=== PATIENT | male | born 1980 | race Caucasian/White ===

== ENCOUNTER 2019-10-19 12:47 | Outpatient (CLI) | payer OTHER ==
--- NOTE | 2019-10-19 14:28 | MRI ---
MRI lumbar spine noncontrast: HISTORY: Lumbago with sciatica. Symptoms are on the right side. Numbness x3 months. COMPARISON: None FINDINGS: Appropriate T1 marrow signal intensity of the lumbar vertebra. Lumbar spine vertebral body height is maintained. No fracture. No significant STIR hyperintensity to suggest ligamentous injury or vertebral body edema. Sagittal images of the visualized sacrum and upper coccyx do not demonstrate any abnormality. Presacr al fat is preserved. Appropriate signal intensity visualized paraspinal muscles and solid organs. Left renal parapelvic cy sts are noted. Conus medullaris terminates at the superior endplate of L1 T12-L1:Minimal disc desiccation without significant loss of disc space height. Small left and right p aracentral disc bulges. No significant central canal stenosis or significant neural foraminal narrowing. L1-L2:Adequate disc hydration. No loss of disc space height. No posterior disc abnormality. No signif icant central canal stenosis or significant neural foraminal narrowing. L2-L3:Adequate disc hydration. Broad-based disc bulge minimally flattens the ventral thecal sac. Mode rate bilateral facet hypertrophy. No significant ductal canal stenosis. Mild bilateral neural foraminal narrowing. L3-L4:Adequate disc hydration. Broad-based disc bulge minimally flattens the ventral thecal sac. Mode rate bilateral facet hypertrophy. No significant central canal stenosis. Right neural foramen is patent. Moderate left foraminal narrowing due to disc material and to lesser extent facet hypertrophy . L4-L5:Disc desiccation with mild loss of disc space height. Broad-based disc bulge abuts the thecal s ac. There is disc material in the right subarticular zone with a small component of inferior disc extrusion. Disc material obscures the traversing right L5 nerve root. There is facet hypertrophy. Ove rall there is mild central canal stenosis. Moderate to severe right neural foraminal narrowing due to disc material and facet hypertrophy. Moderate left neural foraminal narrowing due to disc material and facet hypertrophy. L5-S1:No significant central canal stenosis or significant neural foraminal narrowing. IMPRESSION: 1. No fracture 2. Disc desiccation at L4-L5. Broad-based disc bulge with disc material extending into the right suba rticular zone. There is inferior disc extrusion with obscuration the traversing right L5 nerve root. Transcribed Date/Time: 10/19/2019 2:57 PM
--- NOTE | 2019-10-19 14:59 | RAD ---
CARRASCO VIEW OF THE SKULL: 10/19/19 HISTORY: MRI clearance. Patient grinds metal for work. FINDINGS: Single Carrasco view of the skull shows no evidence of intraorbital radiopaque foreign body. The visual ized paranasal sinuses are well aerated. IMPRESSION: No evidence of intraorbital radiopaque foreign body. POS: [id number]
== END 2019-10-19 12:48 | disposition home or self-care (01) ==
LOC: BICMRI 12:47
DX: G89.29 Other chronic pain (principal); M51.26 Other intervertebral disc displacement, lumbar region; M51.9 Unspecified thoracic, thoracolumbar and lumbosacral intervertebral disc disorder
CPT/HCPCS: 70210; 72148